=== PATIENT | female | born 2005 | race Caucasian/White ===

== ENCOUNTER 2025-05-24 08:26 | Emergency (ER) | payer SELFPAY ==
[~2025-05-24] VITALS: Ht 172.7 cm; Wt 66.0 kg
[2025-05-24 08:32] VITALS: O2SAT 100
[2025-05-24] MEDS: DOXYCYCLINE HYCLATE 100MG CAPSULE PO ONE (08:53)
[2025-05-24] MEDS: CEFTRIAXONE SODIUM 500MG VIAL IM ONE (09:21)
[2025-05-24 09:22] LABS: CLARITY URINE CLEAR (CLEAR); COLOR URINE YELLOW (YELLOW); GLUCOSE URINE NEGATIVE (NEGATIVE); KETONES URINE NEGATIVE (NEGATIVE); LEUKOCYTE ESTERASE URINE NEGATIVE (NEGATIVE); NITRITE URINE NEGATIVE (NEGATIVE); OCCULT BLOOD URINE NEGATIVE (NEGATIVE); PH URINE 5.5 (4.5-8.0); PROTEIN URINE 1+ (NEGATIVE); SPECIFIC GRAVITY URINE 1.036 (1.005-1.030); UROBILINOGEN URINE 0.2 E.U./dL (0.2-1.0)
[2025-05-24 09:36] LABS: HCG SCREEN POSITIVE
[2025-05-24] MEDS ORDERED: METR-167 MT (09:48)
[2025-05-24 10:04] LABS: BACTERIA URINE 1+; RBC URINE 0-2 /hpf (0-2); SQUAMOUS EPITHELIAL CELL URINE 3+ /lpf (RARE/1+); WBC URINE 0-2 /hpf (0-2); YEAST URINE NONE SEEN
[2025-05-24] MEDS: AZITHROMYCIN 500 MG TABLET PO ONE (10:08)
[2025-05-24 10:15] VITALS: BP 114/72; PULSE 99; RESP 15; TEMP 37.1; O2SAT 100
[2025-05-25 04:10] LABS: HSV TYPE 2 SPECIFIC AB IGG Non Reactive (Non Reactive)
[2025-05-25 15:12] LABS: NEISSERIA GONORRHOEAE NAA Negative (Negative)
[2025-05-27 04:07] LABS: CHLAMYDIA TRACHOMATIS NAA Positive (Negative)
== END 2025-05-24 10:16 | disposition home or self-care (01) ==
LOC: ER 08:26
DX: O26.891 Other specified pregnancy related conditions, first trimester (principal); Z11.3 Encounter for screening for infections with a predominantly sexual mode of transmission; Z3A.01 Less than 8 weeks gestation of pregnancy
CPT/HCPCS: 99283; 86592; 86695; 86696; 87491; 87591; 81003; 81025; 84703; 36415; 96372; J0696